=== PATIENT | female | born 2000 | race Two or more races ===

== ENCOUNTER 2025-04-16 17:32 | Outpatient (CLI) | payer BC, SELFPAY ==
--- NOTE | 2025-04-16 17:30 | CRLHL7_ITS ---
For Patients: As a result of the Century Cures Act, medical imaging exams and procedure reports are released immediately into your electronic medical record. You may view this report before your referring provider. If you have questions, please contact your health care provider. INDICATION: Dating and viability. LMP 02/12/2025. COMPARISON: None available. TECHNIQUE: Ultrasound OB pelvis transabdominal. Real time grayscale imaging of the pelvis was performed. FINDINGS: Sonographic imaging demonstrates a single living intrauterine gestation. The embryo has a regular cardiac rate measuring 173 beats per minute. The embryo`s crown-rump length measures 2.6 cm which corresponds to a gestational age of 9 weeks 3 days with sonographic due date 11/16/2025. There is a normal-appearing yolk sac. The placenta has not yet developed. No evidence of a perigestational hemorrhage. The right ovary was not visualized. The left ovary measures 2.5 x 1.0 x 1.8 cm. There is a 2.0 x 1.2 x 1.1 cm lobulated cystic focus adjacent to the left ovary with no internal vascularity. This may represent a paraovarian cyst. No free fluid in the pelvic cul-de-sac. IMPRESSION: 1. Single living intrauterine gestation corresponding to an ultrasound gestational age of 9 weeks 3 days with sonographic due date 11/16/2025. 2. The clinical gestational age by LMP is 9 weeks 0 days. 3. Possible small left paraovarian cyst. Dictated by Betsy Flood MD @ 04/17/2025 4:30:03 AM (Electronically Signed)
== END 2025-04-16 17:33 | disposition home or self-care (01) ==
LOC: US 17:33
PROVIDERS: Visit Provider Physician Assistant
DX: Z34.91 Encounter for supervision of normal pregnancy, unspecified, first trimester (principal); Z3A.09 9 weeks gestation of pregnancy
CPT/HCPCS: 76801; 76817

== ENCOUNTER 2025-04-30 15:50 | Outpatient (CLI) | payer BC, SELFPAY | END 2025-04-30 15:51 | disposition home or self-care (01) | LOC: NFLDREF 05-05 18:06 | PROVIDERS: Visit Provider Physician Assistant | DX: R76.89 Other specified abnormal immunological findings in serum (principal) | CPT/HCPCS: 86704; 86706; 87340 ==